=== PATIENT | male | born 1955 | race Caucasian/White ===

== ENCOUNTER → 2018-03-18 15:34 | Outpatient (CLI) | payer OTHER, SELFPAY ==
[2018-03-18 16:09] LABS: BUN Creatinine Ratio 27.5 (6-22); Blood Urea Nitrogen 22 mg/dL (9-20); Calcium 9.4 mg/dL (8.4-10.2); Carbon Dioxide 28 mmol/L (22-32); Chloride 103 mmol/L (98-107); Estimated Glomerular Filt Rate > 60.0 mL/min (>60); Glucose 99 mg/dL (80-110); HEMOLYSIS < 15 (0-50); Potassium 4.2 mmol/L (3.4-5.1); Sodium 140 mmol/L (137-145)
[2018-03-18 16:28] LABS: Vitamin D 25 Hydroxy (D3) 34.1 ng/mL (30.0-100.0)
[2018-03-18 16:40] LABS: Prostate Specific Antigen Scrn 1.38 ng/mL (0.1-4.0)
== END ==
PROVIDERS: PCP Student in an Organized Health Care Education/Training Program; Visit Provider Student in an Organized Health Care Education/Training Program
DX: E55.9 Vitamin D deficiency, unspecified (principal); I10 Essential (primary) hypertension; Z12.5 Encounter for screening for malignant neoplasm of prostate
CPT/HCPCS: 36415; 80048; 82306; G0103

== ENCOUNTER → 2019-02-06 07:13 | Outpatient (CLI) | payer OTHER, SELFPAY ==
--- NOTE | 2019-02-06 08:20 | PM.TREADMILL ---
Cardiac Stress Test Report Referral & Results Date Patient Seen: 02/06/19 Time Patient Seen: 08:00 Requesting provider: Moisés Vargas Indication: Abnormal ST deviations in precordial leads Rest ECG: Normal sinus rhythm Procedure Note: Today following both written and verbal informed consent the patient was exercised according to a standard Tolu protocol patient went for a total of 9 minutes 8 seconds achieving a maximum heart rate of 159 maximum systolic blood pressure of 240. This is approximately 10.1 METs. Exercise was terminated at this point because of fatigue. Patient was also given Cardiolite through a previously started Hep-Lock IV by the nuclear cardiology technologist approximately 1 minute prior to the cessation of exercise. No signs or symptoms of angina. Hypertensive at baseline with appropriate increase in heart rate and blood pressure with exercise. NAN-15% on active scale. [address] depressions in inferior leads that resolved rapidly with rest. Impression: Intermediate probability for ischemia. Will await perfusion imaging. Please note: Actual ECG tracings can be found in the PACS system.
--- NOTE | 2019-02-09 15:57 | DI.NM.S_ITS ---
DATE OF SERVICE: 02/06/2019 PROCEDURE PERFORMED: Exercise treadmill stress and rest myocardial perfusion imaging study with gating to assess ejection fraction and regional wall motion. ORDERING PROVIDER: Moisés Vargas MD INDICATIONS: The patient is a 63-year-old male with a strong family history of ischemic heart disease and an abnormal ECG. EXERCISE TREADMILL TESTING: The patient was able to exercise for a total of 9 minutes 8 seconds on a standard Tolu protocol suggesting very good exercise capacity with an NAN of -15%. He had a normal heart rate response to exercise, achieving a maximum heart rate of 159 bpm (103% of his predicted maximum). He had a hypertensive blood pressure response to exercise with a resting blood pressure of 170/100 increasing to a maximum of 240/90. He had no chest discomfort. His resting ECG is normal. He develop some mild upsloping ST depression but no significant ST-segment deviation. He had a rare PAC in recovery but otherwise no arrhythmias were noted. At 8 minutes 12 seconds of exercise, at heart rate of 155 bpm, 26.9 mCi of technetium-99 Myoview was injected and the patient was imaged 15 minutes later using a gated SPECT acquisition protocol. He returned the 3 days later and was reinjected with an additional 25.6 mCi of technetium-99 Myoview and was imaged 30 minutes later, again using a gated SPECT acquisition protocol. FINDINGS: 1. Raw Data: There is fairly good myocardial tracer uptake. The lung/heart ratio is normal at 0.28 with a normal TID ratio of 0.50. 2. Quantitative Gated SPECT: Post stress ejection fraction is estimated at 86% without any focal wall motion abnormality. Resting ejection fraction is estimated at 75% with a resting end-diastolic volume of 79 mL. 3. Myocardial Perfusion Imaging: Post stress supine images show a normal myocardial perfusion pattern without any perfusion defects, supported by normal perfusion imaging in the prone position. The resting images show an identical perfusion pattern without any areas of improvement. IMPRESSION: 1. Normal myocardial perfusion study. 2. No evidence of myocardial ischemia or previous myocardial infarction. 3. Normal left ventricular systolic function without focal wall motion abnormality. 4. Very good exercise capacity without angina or ECG evidence of ischemia. He had a notable hypertensive blood pressure response to exercise. VonNoe - FRANKIE/lore/ doc#: [id number]/job#: [id number] dd: 02/09/2019 12:44:00 dt: 02/09/2019 15:43:00 DICTATING MD/COPIES TO: Anmol Sánhcez MD; Moisés Vargas MD COPIES MNE: ELLEN BARLOW
== END ==
PROVIDERS: PCP Student in an Organized Health Care Education/Training Program; Visit Provider Student in an Organized Health Care Education/Training Program
DX: R94.31 Abnormal electrocardiogram [ECG] [EKG] (principal); E78.5 Hyperlipidemia, unspecified; I10 Essential (primary) hypertension; Z82.49 Family history of ischemic heart disease and other diseases of the circulatory system
CPT/HCPCS: 78452; 93016; 93017; 93018; A9502

== ENCOUNTER 2019-03-05 12:44 | Day surgery (SDC) | payer OTHER, SELFPAY ==
[2019-03-05 13:06] VITALS: BP 173/85; PULSE 65; RESP 16; TEMP 36.5; O2SAT 98; BMI 22.9
[2019-03-05] MEDS: SODIUM CHLORIDE 0.9% 1,000 ML 200 ML IV (13:14)
--- NOTE | 2019-03-05 13:47 | PM.HP.1 ---
History of Present Illness History of Present Illness Date Patient Seen: 03/05/19 Time Patient Seen: 13:47 Chief complaint: [address] Narrative: Patient presents for colorectal screening. The last colonoscopy was 5 years ago and significant for adenomatous polyps.. No personal or family history of colon cancer. On further history denies any recent gastrointestinal symptoms. No nausea, vomiting, abdominal pain, loss of appetite, unexplained weight loss, change in bowel habits, diarrhea, constipation, melena, hematochezia, or bright red blood per rectum. Patient History Medical History Hyperlipidemia (Chronic ~2000) Hypertension (Chronic ~2005) Surgical History S/P gastrointestinal surgery (Resolved) Family & Social History Family History Brother Age: 66 Hypertension High cholesterol Father Coronary artery disease Hypertension Mother Colorectal cancer Social History: household members spouse Tobacco & Substance use: Smoking Status Former smoker Meds Home Medications and Allergies Home Medications Medication Instructions Recorded Confirmed Type ASPIRIN (#ASPIR 81) 81 mg PO Q DAY #0 07/31/11 03/05/19 History cholecalciferol (vitamin D3) 1,000 unit PO Q OTHER DAY #0 01/16/16 03/05/19 History [Vitamin D3] lisinopril 40 mg tablet 40 mg PO QDAY #30 tab 07/24/18 03/05/19 Rx atorvastatin 40 mg tablet 40 mg PO HS #90 tab 10/28/18 03/05/19 Rx metoprolol succinate 50 mg 50 mg PO BID #180 tab 11/27/18 03/05/19 Rx tablet,extended release 24 hr Allergies Allergy/AdvReac Type Severity Reaction Status Date / Time No Known Drug Allergies Allergy Verified 03/05/19 12:58 Review of Systems Review of Systems Narrative: A complete review of systems is negative except as noted in the HPI Exam Vital Signs (past 8 hours): - 03/05/19 13:06 Temperature 97.7 F Pulse Rate 65 Respiratory Rate 16 Blood Pressure 173/85 H Pulse Oximetry 98 Oxygen Delivery Method Room Air Narrative Exam Narrative: General-no acute distress, well nourished HEENT-moist mucous membranes, no scleral icterus Neck-supple, no lymphadenopathy Chest- non labored respirations, clear to auscultation bilaterally Cardiac-regular rate no peripheral edema Abdomen-soft, nontender, non distended Extremities-warm, well perfused Neurological-alert and oriented, no focal deficits Assessment & Plan Assessment and plan (1) Screening for colon cancer: Current visit: Yes Status: Acute Assessment & Plan narrative: The patient requires colorectal screening and colonoscopy is recommended. Technical details were discussed. Risks, benefits, alternatives explained. Risks including but not limited to myocardial infarction, aspiration, bleeding, pain, missed lesion, incomplete examination, need for further radiographic studies, colonic perforation, and need for major abdominal surgery were discussed. All questions were answered to their satisfaction, and they are in agreement with this plan.
[2019-03-05] MEDS: MIDAZOLAM 5 MG/5 ML VIAL IV (13:52)
[2019-03-05] MEDS: fentaNYL 250 MCG/5 ML INJ IV (13:53)
--- NOTE | 2019-03-05 14:19 | PM.OP.ENDO ---
Operative Date/Time/Diagnoses Date of procedure: 03/05/19 Time of procedure: 14:19 Pre-op diagnosis: Screening colonoscopy Post-op diagnosis: same Procedure & Clinicians Study performed: Colonoscopy Same procedure as scheduled: Yes Indications: 63-year-old male family history colon cancer last colonoscopy 5 years ago with adenomatous polyp presents for screening Surgeon: Davi West Procedure Notes SCOAP/Timeout: Performed Procedure in detail: Patient placed in left lateral decubitus position. Time out was performed. Procedural sedation was administered with Versed and Fentanyl. A rectal exam demonstrated no external hemorrhoids no internal masses. Colonoscopy scope was placed into the rectum and advanced through the colon to the cecum. The ileocecal valve was identified. The scope was then slowly withdrawn examining colon thoroughly in all directions. The colonoscopy was notable for the following 1. Sigmoid diverticulosis 2. Quality of prep excellent 3. No masses or polyps Scope withdrawal time: 7 Sedation minutes: 20 Findings: diverticulosis Specimen(s): none sent Complications: none Impression: Diverticulosis Post-procedure Recommendations: Colonscopy in 5 years (Mother colon cancer 60) Disposition: same day surgery
[2019-03-05 14:23] VITALS: BP 129/66; PULSE 58; RESP 10; TEMP 36.6; O2SAT 95
[2019-03-05 14:30] VITALS: BP 110/51; PULSE 58; RESP 12; O2SAT 99
[2019-03-05 14:40] VITALS: BP 123/54; PULSE 58; RESP 12; O2SAT 94
[2019-03-05 14:50] VITALS: BP 124/63; PULSE 55; RESP 14; TEMP 36.9; O2SAT 95
--- NOTE | 2019-03-05 15:06 | SUR.PHASEII ---
1455 wants to go home, comfortable and stable. Instructions reviewed.
--- NOTE | 2019-03-05 15:19 | SUR.PHASEII ---
1512 Stable on feet, comfortable and pleasant, no questions/concerns
== END 2019-03-05 15:12 | disposition home or self-care (01) ==
PROVIDERS: Family Provider Student in an Organized Health Care Education/Training Program; PCP Student in an Organized Health Care Education/Training Program; Visit Provider Surgery
PROC: 0DJD8ZZ Inspection of Lower Intestinal Tract, Via Natural or Artificial Opening Endoscopic (ICD-10-PCS; CPT 45378; principal; 2019-03-05 13:45)
DX: Z12.11 Encounter for screening for malignant neoplasm of colon (principal); Z86.010 Personal history of colon polyps; Z80.0 Family history of malignant neoplasm of digestive organs; E78.5 Hyperlipidemia, unspecified; I10 Essential (primary) hypertension; K57.30 Diverticulosis of large intestine without perforation or abscess without bleeding
CPT/HCPCS: G0105; 99152; J2250; J3010

== ENCOUNTER → 2019-04-17 07:56 | Outpatient (CLI) | payer OTHER, SELFPAY ==
[2019-04-17 08:53] LABS: BUN Creatinine Ratio 27.5 (6-22); Blood Urea Nitrogen 22 mg/dL (9-20); Calcium 9.5 mg/dL (8.4-10.2); Carbon Dioxide 25 mmol/L (22-32); Chloride 105 mmol/L (98-107); Estimated Glomerular Filt Rate > 60.0 mL/min (>60); Glucose 105 mg/dL (80-110); HEMOLYSIS < 15 (0-50); Potassium 4.3 mmol/L (3.4-5.1); Sodium 139 mmol/L (137-145)
== END ==
PROVIDERS: Family Provider Student in an Organized Health Care Education/Training Program; PCP Student in an Organized Health Care Education/Training Program; Referring Provider Student in an Organized Health Care Education/Training Program; Visit Provider Student in an Organized Health Care Education/Training Program
DX: I10 Essential (primary) hypertension (principal)
CPT/HCPCS: 36415; 80048

== ENCOUNTER → 2020-05-31 10:30 | Outpatient (CLI) | payer OTHER, SELFPAY ==
[2020-05-31 11:28] LABS: BUN Creatinine Ratio 27.6 (6-22); Blood Urea Nitrogen 21 mg/dL (9-20); Calcium 9.7 mg/dL (8.4-10.2); Carbon Dioxide 28 mmol/L (22-32); Chloride 103 mmol/L (98-107); Estimated Glomerular Filt Rate > 60.0 mL/min (>60); Glucose 105 mg/dL (80-110); HEMOLYSIS < 15 (0-50); Potassium 4.1 mmol/L (3.4-5.1); Sodium 137 mmol/L (137-145)
[2020-05-31 12:03] LABS: Prostate Specific Antigen Scrn 1.44 ng/mL (0.1-4.0)
== END ==
PROVIDERS: Family Provider Student in an Organized Health Care Education/Training Program; PCP Student in an Organized Health Care Education/Training Program; Referring Provider Student in an Organized Health Care Education/Training Program; Visit Provider Student in an Organized Health Care Education/Training Program
DX: Z12.5 Encounter for screening for malignant neoplasm of prostate (principal); I10 Essential (primary) hypertension
CPT/HCPCS: 36415; 80048; G0103

== ENCOUNTER → 2021-04-17 07:39 | Outpatient (CLI) | payer OTHER, SELFPAY ==
[2021-04-17 08:33] LABS: Alanine Aminotransferase 62 IU/L (<50); Albumin 4.4 g/dL (3.5-5.0); Albumin Globulin Ratio 1.3 (1.0-2.8); Alkaline Phosphatase 62 U/L (38-126); Aspartate Aminotransferase 43 IU/L (17-59); BUN Creatinine Ratio 29.6 (6-22); Bilirubin Total 0.6 mg/dL (0.2-1.3); Blood Urea Nitrogen 29 mg/dL (9-20); Calcium 9.8 mg/dL (8.4-10.2); Carbon Dioxide 35 mmol/L (22-32); Chloride 101 mmol/L (98-107); Cholesterol 154 mg/dL (140-199); Estimated Glomerular Filt Rate > 60.0 mL/min (>60); Globulin 3.4 g/dL (1.7-4.1); Glucose 115 mg/dL (80-110); HDL Cholesterol 41 mg/dL (40-60); HEMOLYSIS < 15 (0-50); LDL Cholesterol Calculated 88 mg/dL (<100); Potassium 4.3 mmol/L (3.4-5.1); Sodium 139 mmol/L (137-145); Total Protein 7.8 g/dL (6.3-8.2); Triglycerides 123 mg/dL (35-150)
[2021-04-17 09:04] LABS: TSH w/ Reflex to FT4 2.72 uIU/mL (0.47-4.68)
[2021-04-17 09:19] LABS: Microalbumin Urine Random 6.6 mg/dL (0-1.6)
[2021-04-17 09:20] LABS: Creatinine Urine Random 477.7 mg/dL; Microalbumi Creatinin Ratio Ur 13.8 ug/mg CR (<30)
== END ==
PROVIDERS: Family Provider Student in an Organized Health Care Education/Training Program; PCP Student in an Organized Health Care Education/Training Program; Referring Provider Internal Medicine; Visit Provider Internal Medicine
DX: I10 Essential (primary) hypertension (principal); E78.5 Hyperlipidemia, unspecified
CPT/HCPCS: 36415; 80053; 80061; 82043; 82570; 84443

== ENCOUNTER → 2021-09-27 07:42 | Outpatient (CLI) | payer OTHER, SELFPAY ==
[2021-09-27 09:27] LABS: Prostate Specific Antigen Scrn 1.79 ng/mL (0.1-4.0)
== END ==
PROVIDERS: Family Provider Student in an Organized Health Care Education/Training Program; PCP Student in an Organized Health Care Education/Training Program; Referring Provider Urology; Visit Provider Urology
DX: Z12.5 Encounter for screening for malignant neoplasm of prostate (principal)
CPT/HCPCS: 36415; G0103

== ENCOUNTER → 2022-02-02 15:29 | Outpatient (CLI) | payer OTHER, SELFPAY ==
[2022-02-02 16:23] LABS: Add Manual Diff / Slide Review NO; Basophils Absolute Auto 100 /uL (0-100); Basophils Percent Auto 0.6 % (0-2); Eosinophils Absolute Auto 200 /uL (0-450); Eosinophils Percent Auto 2.4 % (2-4); Hematocrit 37.3 % (41-53); Hemoglobin 12.5 g/dL (13.5-17.5); Lymphocytes Absolute Auto 2600 /uL (1100-4500); Lymphocytes Percent Auto 27.2 % (25-40); Mean Corpuscular HGB Conc 33.6 % (30-36); Mean Corpuscular Hemoglobin 31.4 PG (26-34); Mean Corpuscular Volume 93.6 fL (80-100); Monocytes Absolute Auto 900 /uL (0-900); Monocytes Percent Auto 9.6 % (3-14); Neutrophils Absolute Auto 5800 /uL (1500-7000); Neutrophils Percent Auto 60.2 % (50-75); Platelet Count 223 X10^3/uL (150-400); Red Blood Cell Count 3.98 X10^6/uL (4.5-5.9); White Blood Cell Count 9.6 X10^3/uL (4.5-11.0)
[2022-02-02 16:47] LABS: Alanine Aminotransferase 47 IU/L (<50); Albumin 4.3 g/dL (3.5-5.0); Albumin Globulin Ratio 1.4 (1.0-2.8); Alkaline Phosphatase 70 U/L (38-126); Aspartate Aminotransferase 30 IU/L (17-59); Bilirubin Total 0.5 mg/dL (0.2-1.3); Blood Urea Nitrogen 31 mg/dL (9-20); Calcium 9.1 mg/dL (8.4-10.2); Carbon Dioxide 30 mmol/L (22-32); Chloride 99 mmol/L (98-107); Estimated Glomerular Filt Rate > 60 mL/min (>60); Glucose 103 mg/dL (80-110); HEMOLYSIS < 15 (0-50); Potassium 4.3 mmol/L (3.4-5.1); Sodium 139 mmol/L (137-145); Total Protein 7.3 g/dL (6.3-8.2)
[2022-02-02 17:00] LABS: Free T4, Direct Thyroxine 1.09 ng/dL (0.78-2.19)
[2022-02-02 17:14] LABS: Thyroid Stimulating Hormone 2.23 uIU/mL (0.47-4.68)
== END ==
PROVIDERS: Family Provider Student in an Organized Health Care Education/Training Program; PCP Student in an Organized Health Care Education/Training Program; Referring Provider Internal Medicine; Visit Provider Internal Medicine
DX: E78.5 Hyperlipidemia, unspecified (principal); D64.9 Anemia, unspecified
CPT/HCPCS: 36415; 80053; 84439; 84443; 85025

== ENCOUNTER 2022-07-13 09:30 | Outpatient (RCR) | payer OTHER, SELFPAY ==
--- NOTE | 2022-07-02 16:52 | PT.OIE ---
Current Diagnoses Strain of muscle, fascia and tendon of lower back, initial encounter (07/02/22) Past Medical History (Last Updated 04/18/22 @ 12:27 by Teddy Esquivel MD) Contact dermatitis Hyperlipidemia (~2000) Hypertension (~2005) Lower urinary tract symptoms Past Surgical History (Last Reviewed 09/05/21 @ 13:56 by Teddy Esquivel MD) S/P gastrointestinal surgery Visit Care Team Role Provider Type Moisés Vargas MD Attending Provider Physician Family Provider Primary Care Provider Referring Provider Specialty: Internal Medicine Address: [address] [place] [address], [address], [facility] Email: [email or web address] Physical Therapy Initial Evaluation PT-OP-A Visit Information Start: 06/28/22 18:09 Freq: Status: Active Protocol: Document 07/02/22 13:17 LRN (Rec: 07/02/22 14:59 LRN [id number]) Out-Patient Physical Therapy Visit Information Visit Information Visit Type Initial Evaluation Visit Start Time 13:17 Visit Stop Time 14:19 Total Visit Minutes 62 Visit Number 03/10 Evaluation Information Evaluation Date 07/02/22 Precautions Precautions Per intake form: Hernia - 2011, HBP controlled by meds. PT-OP-B Current Condition Start: 06/28/22 18:09 Freq: Status: Active Protocol: Document 07/02/22 13:17 LRN (Rec: 07/02/22 14:59 LRN [id number]) Current Condition History of Current Condition Onset Date June 07, 2022 Current Complaints LBP constant, diminishes as the day goes on w/pain meds, worse at night. History of Current Condition 3.5 weeks ago pt reports sudden onset of LBP. 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 Pain began in the L low back and later it radiated into the thigh. Numbness and tingling in L LE. LLE and bilateral feet feels cold if sitting a long time. Prior Treatments and Tests Dr. Palencias, chiropractor and was told he was suffering from a facet joint strain. Treatments started 06/12/22, has had 3 visits/week and will see him today. Developmental History Developmental History Part-time, 4 days a week, 24 hr/week. [employer] and has maybe been to eager to help load sacks of concrete. 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 Has had gradual improvement. Last week and today is better and in mornings better. Pain in AM is 4/10, using pain relievers (prednisone - for 1 week and will finish tomorrow), Naproxin and extra strength tylenol and heating pad/ice/ rest. Previous onset of hernia disc ~12 yrs ago. Treatment Goals Patient/Caregiver Goals Pt goals: Carry on normally without back pain. 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 Prior Functional Status Baseline Function- Work/School Walked unlimited at work 4 days/week, 24 hr days. Able to stand > 10-15'. Current Functional Impairments (Reported) Functional Limitations- Mobility/Gait 100 yards or less. Stands only 10-15' before LBP. Functional Limitations- Work/School Off work for now. Personal Factors Other Personal Factors That May Effect Retired, but working part-time Therapy/Recovery at [employer] locally and at [employer], both requiring lifting requrements. PT-OP-C Subjective Start: 06/28/22 18:09 Freq: Status: Active Protocol: Document 07/02/22 13:17 LRN (Rec: 07/02/22 14:59 LRN [id number]) Patient Questionnaires Oswestry Low Back Index Oswestry Score 16 Oswestry Impairment 1 to 19% Impaired (Score 1-19) OP-PT Pain Assessment Pain Assessment Grid Paper Pain Assessment Grid Completed Yes Location Low back Pain Location Details L Low back an L lateral thigh and posterior knee; groin, R inner thigh, Intensity 3 Scale Used Numeric (0 - 10) Description Tightness Description- Other Strain feeling. Frequency Constant Pain Aggravating Factors ADL's,Activity,Standing, Walking,Prolonged Bedrest Pain Alleviating Factors Cold,Heat,Medication,Standing PT-OP-H Neuro Start: 06/28/22 18:09 Freq: Status: Active Protocol: Document 07/02/22 13:17 LRN (Rec: 07/02/22 14:59 LRN [id number]) Sensation Evaluation Gross Sensation Gross Sensation Left LE Impaired Sensation Description Numbness,Coldness Dermatome Impairments L3 Deep Tendon Reflex & Clonus Assessment Deep Tendon Reflex Right Patellar Deep Tendon Reflex 0 Absent Left Patellar Deep Tendon Reflex 2+ Normal PT-OP-J Posture/Palpation/Skin Start: 06/28/22 18:09 Freq: Status: Active Protocol: Document 07/02/22 13:17 LRN (Rec: 07/02/22 14:59 LR [id number]) Posture Evaluation Position Standing Head/C-Spine Posture Forward Head Pelvis Posture Anteriorly Tilted Hip Posture (L) Externally Rotated,(R) Externally Rotated Comments Posture Comments R lower leg is smaller than L. Pt is R handed. Palpation Assessment Location Low Back Palpation Location Left QL Palpation Findings Tenderness Palpation Details No tenderness at L SIJ, spinous processes of L/S with PA glide, hip muscles. Tightness of L hip muscles. PT-OP-K Range of Motion Start: 06/28/22 18:09 Freq: Status: Active Protocol: Document 07/02/22 13:17 LRN (Rec: 07/02/22 14:59 [facility] [id number]) Lumbar Spine Range of Motion Lumbar Spine Active Degrees Testing Position Standing Flexion 80 Extension 25 Rotation Left 15 Rotation Right 10 Lateral Flexion Left 12 Lateral Flexion Right 25 ROM Limitations Pain Comments Trunk Flexion is 80 deg?s with 62 deg?s hip flexion, Trunk extension is 25 deg?s with 18 deg?s hip extension. Hip Goniometric Range of Motion Hip Right Passive Hip ROM WFL Yes Testing Position Supine Internal Rotation 30 External Rotation 55 Left Passive Hip ROM WFL No Testing Position Supine Internal Rotation 35 External Rotation 50 PT-OP-L Special Tests Start: 06/28/22 18:09 Freq: Status: Active Protocol: Document 07/02/22 13:17 LRN (Rec: 07/02/22 14:59 [facility] [id number]) Special Tests Lumbar Spine Special Tests Manual Traction Test Results - Comments No change in L LBP. Vertical Spine Loading Test Results - Comments No pain, trunk goes into extension Straight Leg Raise Test Results + Left (50 deg's), - Right (80 deg's) Standing Flexion Test Results - Comments No pain Prone Press Up Test Results - Comments No pain Slump Test Results - Comments No pain Hip Special Tests SAULO Test Results + Left Comments Onset of L lateral hip/lateral groin pain. PT-OP-M Strength Start: 06/28/22 18:09 Freq: Status: Active Protocol: Document 07/02/22 13:17 LRN (Rec: 07/02/22 14:59 LRN [id number]) Trunk Strength Trunk Manual Muscle Testing Flexion 5 Normal Extension 5 Normal Rotation Left 5 Normal Rotation Right 5 Normal Lateral Flexion Left 5 Normal Lateral Flexion Right 5 Normal Comments Pain felt with testing of trunk L SB and extension. Hip Strength Hip Manual Muscle Testing Right Flexion (L2) 5 Normal Extension (S1) 5 Normal Abduction 5 Normal Adduction 5 Normal External Rotation 5 Normal Internal Rotation 5 Normal Left Flexion (L2) 4- Good- Extension (S1) 5 Normal Abduction 4- Good- Adduction 2- Poor- External Rotation 5 Normal Internal Rotation 5 Normal Comments Flex - anterior lateral hip pain. PT-OP-Q Treatments Start: 06/28/22 18:09 Freq: Status: Active Protocol: Document 07/02/22 13:17 LRN (Rec: 07/02/22 14:59 LRN [id number]) Self-Care/Home Management Treatment Education Other Education Discussed at length results of evaluation, goals, and plan of care (POC). Pt agreeable to goals and POC. Pt had questions regarding stopping medications. Explained to pt to keep meds as prescribed and why. Discussed that the pt should speak to referring MD or pharmacist regarding medications. Activities Self-Care/Home Management Activities I/S pt to continue his regime of meds/heat/ice. PT-OP-T Assessment and Plan Start: 06/28/22 18:09 Freq: Status: Active Protocol: Document 07/02/22 13:17 LRN (Rec: 07/02/22 14:59 [facility] [id number]) Physical Therapy Assessment Rehab Potential Rehabilitation Potential Good Evaluation Complexity Number of Personal Factors/Comorbidities 1-2 Number of Body Systems Impaired 4 or More Clinical Presentation at Evaluation Evolving Impairments Impairments Activity Tolerance,Pain, Posture,ROM,Sensation,Soft Tissue Mobility,Strength, Transfers Goals Three Impairment Decreased function Impairment KACI score 32/100 (1-19% impaired, score 1-19). Short Term Goal (STG) Pt will be able to standing > 10-15'. 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 LTG Duration 08/13/22 Two Impairment Decreased trunk mobility Impairment Trunk Flex is 80 deg's, Trunk ext is 25 deg's, SB is 12 deg' s left, 25 deg's right; Rot is 15 deg's L, 10 deg's R. Boilermaker Fitter Goal (LTG) Pt will be able to get in/out of car without back pain. LTG Duration 08/13/22 One Impairment Lacks appropriate self care HEP. Short Term Goal (STG) Pt will be educated in proper body mechanics for transfer and ADLs, and proper sitting and standing posture. STG Duration 07/13/22 Retirement Goal (LTG) Pt will be independent and consistent with a self care HEP to manage his L lower extremity pain and sensation complaints of the LLE ( coldness) and feet (cold). LTG Duration 08/31/22 Assessment Summary Assessment Pt presents with variable response to testing indicating soft neuro or mechanical joint dysfunction. The pt complains of left low back and lateral thigh pain with sensation changes in the L lateral thigh and feet bilaterally (fuzzy feeling in L thigh, and cold sensation in L thigh/tomy feet). He is taking multiple medications including prednisone and reported Naproxin and Tylenol which may be resulting in mixed response to provocation testing. The pt will benefit from skilled physical therapy for focus on decreasing soft tissue muscle guarding and pain, improving lumbar/hip mobility and for hip/core/ pelvic stabilization, manual therapy, ROM, stabilization and strengthening ex's, neural glides, and education for self care of ex's, posturing/ positioning, body mechanics training and home modalities for pain. Physical Therapy Plan Frequency and Duration Frequency of Treatment 2x/Week Plan of Care Start Date 07/02/22 Plan of Care End Date 08/13/22 Therapeutic Interventions Therapeutic Interventions Home Exercise Program,Joint Mobilizations,Manual Therapy, Neuromuscular Re-education, Patient/Caregiver Education, Self-Care/Home Management,Soft Tissue Mobilization,Taping, Therapeutic Activities, Therapeutic Exercises Modalities Cold Pack/Ice Massage,Electric Stimulation,Hot Packs, Traction- Mechanical, Ultrasound Next Visit Focus/Plan Next Note Type Treatment Note Next Visit Plan POC: Lumbar rehab for possible neural involvement with ressessment in 2 weeks after pt has completed prednisone meds. As symptoms change with change in medications (prednisone stopping this week), treatment focus may switch more towards normalization of soft tissue mobility and strength. Start: Manual lumbar traction, Sciatic n glides, body mechanics training, ending MH/ IFES. As pt tols, start core /pelvic stabilization and posture training.
--- NOTE | 2022-07-02 16:52 | PT.OPPOC ---
Physical, Occupational & Speech Therapy At [facility] Current Diagnoses Strain of muscle, fascia and tendon of lower back, initial encounter (07/02/22) Visit Care Team Role Provider Type Moisés Vargas MD Attending Provider Physician Family Provider Primary Care Provider Referring Provider Specialty: Internal Medicine Address: [address] [place] [address], [address], [address] Email: [email or web address] Plan Of Care PT-OP-T Assessment and Plan Start: 06/28/22 18:09 Freq: Status: Active Protocol: Document 07/02/22 13:17 LRN (Rec: 07/02/22 14:59 LRN [id number]) Physical Therapy Assessment Rehab Potential Rehabilitation Potential Good Evaluation Complexity Number of Personal Factors/Comorbidities 1-2 Number of Body Systems Impaired 4 or More Clinical Presentation at Evaluation Evolving Impairments Impairments Activity Tolerance,Pain, Posture,ROM,Sensation,Soft Tissue Mobility,Strength, Transfers Goals Three Impairment Decreased function Impairment KACI score 32/100 (1-19% impaired, score 1-19). Short Term Goal (STG) Pt will be able to standing > 10-15'. 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 LTG Duration 08/13/22 Two Impairment Decreased trunk mobility Impairment Trunk Flex is 80 deg's, Trunk ext is 25 deg's, SB is 12 deg' s left, 25 deg's right; Rot is 15 deg's L, 10 deg's R. Ditcher Goal (LTG) Pt will be able to get in/out of car without back pain. LTG Duration 08/13/22 One Impairment Lacks appropriate self care HEP. Short Term Goal (STG) Pt will be educated in proper body mechanics for transfer and ADLs, and proper sitting and standing posture. STG Duration 07/13/22 Ditcher Goal (LTG) Pt will be independent and consistent with a self care HEP to manage his L lower extremity pain and sensation complaints of the LLE ( coldness) and feet (cold). LTG Duration 08/31/22 Assessment Summary Assessment Pt presents with variable response to testing indicating soft neuro or mechanical joint dysfunction. The pt complains of left low back and lateral thigh pain with sensation changes in the L lateral thigh and feet bilaterally (fuzzy feeling in L thigh, and cold sensation in L thigh/tomy feet). He is taking multiple medications including prednisone and reported Naproxin and Tylenol which may be resulting in mixed response to provocation testing. The pt will benefit from skilled physical therapy for focus on decreasing soft tissue muscle guarding and pain, improving lumbar/hip mobility and for hip/core/ pelvic stabilization, manual therapy, ROM, stabilization and strengthening ex's, neural glides, and education for self care of ex's, posturing/ positioning, body mechanics training and home modalities for pain. Physical Therapy Plan Frequency and Duration Frequency of Treatment 2x/Week Plan of Care Start Date 07/02/22 Plan of Care End Date 08/13/22 Therapeutic Interventions Therapeutic Interventions Home Exercise Program,Joint Mobilizations,Manual Therapy, Neuromuscular Re-education, Patient/Caregiver Education, Self-Care/Home Management,Soft Tissue Mobilization,Taping, Therapeutic Activities, Therapeutic Exercises Modalities Cold Pack/Ice Massage,Electric Stimulation,Hot Packs, Traction- Mechanical, Ultrasound Next Visit Focus/Plan Next Note Type Treatment Note Next Visit Plan POC: Lumbar rehab for possible neural involvement with ressessment in 2 weeks after pt has completed prednisone meds. As symptoms change with change in medications (prednisone stopping this week), treatment focus may switch more towards normalization of soft tissue mobility and strength. Start: Manual lumbar traction, Sciatic n glides, body mechanics training, ending MH/ IFES. As pt tols, start core /pelvic stabilization and posture training. Plan of Care Dates Plan of Care Start Date 07/02/22 Plan of Care End Date 08/13/22 Electronically Signed by: Joaquina Mauricio, PT 07/02/22 8719 If you are in agreement with this Plan of Care, please return a signed and dated copy. I have reviewed this Plan of Care and certify that the skilled therapy services above are required to meet the patient?s needs. Physician Signature Date Printed Name and Credentials Clinical Instructor Signature Printed Name and Credentials
--- NOTE | 2022-07-02 17:10 | PT.OPPOC ---
Physical, Occupational & Speech Therapy At [facility] Current Diagnoses Radiculopathy, lumbar region (07/02/22) Strain of muscle, fascia and tendon of lower back, initial encounter (07/02/22) Visit Care Team Role Provider Type Moisés Vargas MD Attending Provider Physician Family Provider Primary Care Provider Referring Provider Specialty: Internal Medicine Address: [address] [place] [address], [address], [facility] Email: [email or web address] Plan Of Care PT-OP-T Assessment and Plan Start: 06/28/22 18:09 Freq: Status: Active Protocol: Document 07/02/22 13:17 LRN (Rec: 07/02/22 14:59 LRN [id number]) Physical Therapy Assessment Rehab Potential Rehabilitation Potential Good Evaluation Complexity Number of Personal Factors/Comorbidities 1-2 Number of Body Systems Impaired 4 or More Clinical Presentation at Evaluation Evolving Impairments Impairments Activity Tolerance,Pain, Posture,ROM,Sensation,Soft Tissue Mobility,Strength, Transfers Goals Three Impairment Decreased function Impairment KACI score 32/100 (1-19% impaired, score 1-19). Short Term Goal (STG) Pt will be able to standing > 10-15'. 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 LTG Duration 08/13/22 Two Impairment Decreased trunk mobility Impairment Trunk Flex is 80 deg's, Trunk ext is 25 deg's, SB is 12 deg' s left, 25 deg's right; Rot is 15 deg's L, 10 deg's R. [employer] Goal (LTG) Pt will be able to get in/out of car without back pain. LTG Duration 08/13/22 One Impairment Lacks appropriate self care HEP. Short Term Goal (STG) Pt will be educated in proper body mechanics for transfer and ADLs, and proper sitting and standing posture. STG Duration 07/13/22 [employer] Goal (LTG) Pt will be independent and consistent with a self care HEP to manage his L lower extremity pain and sensation complaints of the LLE ( coldness) and feet (cold). LTG Duration 08/31/22 Assessment Summary Assessment Pt presents with variable response to testing indicating soft neuro or mechanical joint dysfunction. The pt complains of left low back and lateral thigh pain with sensation changes in the L lateral thigh and feet bilaterally (fuzzy feeling in L thigh, and cold sensation in L thigh/tomy feet). He is taking multiple medications including prednisone and reported Naproxin and Tylenol which may be resulting in mixed response to provocation testing. The pt will benefit from skilled physical therapy for focus on decreasing soft tissue muscle guarding and pain, improving lumbar/hip mobility and for hip/core/ pelvic stabilization, manual therapy, ROM, stabilization and strengthening ex's, neural glides, and education for self care of ex's, posturing/ positioning, body mechanics training and home modalities for pain. Physical Therapy Plan Frequency and Duration Frequency of Treatment 2x/Week Plan of Care Start Date 07/02/22 Plan of Care End Date 08/13/22 Therapeutic Interventions Therapeutic Interventions Home Exercise Program,Joint Mobilizations,Manual Therapy, Neuromuscular Re-education, Patient/Caregiver Education, Self-Care/Home Management,Soft Tissue Mobilization,Taping, Therapeutic Activities, Therapeutic Exercises Modalities Cold Pack/Ice Massage,Electric Stimulation,Hot Packs, Traction- Mechanical, Ultrasound Next Visit Focus/Plan Next Note Type Treatment Note Next Visit Plan POC: Lumbar rehab for possible neural involvement with ressessment in 2 weeks after pt has completed prednisone meds. As symptoms change with change in medications (prednisone stopping this week), treatment focus may switch more towards normalization of soft tissue mobility and strength. Start: Manual lumbar traction, Sciatic n glides, body mechanics training, ending MH/ IFES. As pt tols, start core /pelvic stabilization and posture training. Plan of Care Dates Plan of Care Start Date 07/02/22 Plan of Care End Date 08/13/22 Electronically Signed by: Joaquina Mauricio, PT 07/02/22 1163 If you are in agreement with this Plan of Care, please return a signed and dated copy. I have reviewed this Plan of Care and certify that the skilled therapy services above are required to meet the patient?s needs. Physician Signature Date Printed Name and Credentials Clinical Instructor Signature Printed Name and Credentials
--- NOTE | 2022-07-09 18:06 | PT.OTN ---
Current Diagnoses Radiculopathy, lumbar region (07/09/22) Strain of muscle, fascia and tendon of lower back, initial encounter (07/09/22) Physical Therapy Treatment Note PT-OP-A Visit Information Start: 06/28/22 18:09 Freq: Status: Active Protocol: Document 07/09/22 09:39 LRN (Rec: 07/09/22 10:22 LRN [id number]) Out-Patient Physical Therapy Visit Information Visit Information Visit Type Treatment Note Visit Start Time 09:39 Visit Stop Time 10:17 Total Visit Minutes 38 Visit Number 2/7 Evaluation Information Evaluation Date 07/02/22 Precautions Precautions Per intake form: Hernia - 2011, HBP controlled by meds. PT-OP-B Current Condition Start: 06/28/22 18:09 Freq: Status: Active Protocol: Document 07/02/22 13:17 LRN (Rec: 07/02/22 14:59 LRN [id number]) Current Condition History of Current Condition Onset Date June 07, 2022 Current Complaints LBP constant, diminishes as the day goes on w/pain meds, worse at night. History of Current Condition 3.5 weeks ago pt reports sudden onset of LBP. 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 Pain began in the L low back and later it radiated into the thigh. Numbness and tingling in L LE. LLE and bilateral feet feels cold if sitting a long time. Prior Treatments and Tests Dr. Carter's, chiropractor and was told he was suffering from a facet joint strain. Treatments started 06/12/22, has had 3 visits/week and will see him today. Developmental History Developmental History Part-time, 4 days a week, 24 hr/week. 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 Has had gradual improvement. Last week and today is better and in mornings better. Pain in AM is 4/10, using pain relievers (prednisone - for 1 week and will finish tomorrow), Naproxin and extra strength tylenol and heating pad/ice/ rest. Previous onset of hernia disc ~12 yrs ago. Treatment Goals Patient/Caregiver Goals Pt goals: Carry on normally without back pain. 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 Prior Functional Status Baseline Function- Work/School Walked unlimited at work 4 days/week, 24 hr days. Able to stand > 10-15'. Current Functional Impairments (Reported) Functional Limitations- Mobility/Gait 100 yards or less. Stands only 10-15' before LBP. Functional Limitations- Work/School Off work for now. Personal Factors Other Personal Factors That May Effect Retired, but working part-time Therapy/Recovery at [employer] and at [employer], both requiring lifting requrements. PT-OP-C Subjective Start: 06/28/22 18:09 Freq: Status: Active Protocol: Document 07/09/22 09:39 LRN (Rec: 07/09/22 10:22 LRN [id number]) OP-PT Subjective Patient Comments Patient Comments States he is getting some relief from the pain. States it is not as intense. Hasn't use pain relievers today. Pain rated 2.5-3/10. Pain 2/ 10 after treatment. PT-OP-H Neuro Start: 06/28/22 18:09 Freq: Status: Active Protocol: Document 07/02/22 13:17 LRN (Rec: 07/02/22 14:59 LRN [id number]) Sensation Evaluation Gross Sensation Gross Sensation Left LE Impaired Sensation Description Numbness,Coldness Dermatome Impairments L3 Deep Tendon Reflex & Clonus Assessment Deep Tendon Reflex Right Patellar Deep Tendon Reflex 0 Absent Left Patellar Deep Tendon Reflex 2+ Normal PT-OP-J Posture/Palpation/Skin Start: 06/28/22 18:09 Freq: Status: Active Protocol: Document 07/02/22 13:17 LRN (Rec: 07/02/22 14:59 LRN [id number]) Posture Evaluation Position Standing Head/C-Spine Posture Forward Head Pelvis Posture Anteriorly Tilted Hip Posture (L) Externally Rotated,(R) Externally Rotated Comments Posture Comments R lower leg is smaller than L. Pt is R handed. Palpation Assessment Location Low Back Palpation Location Left QL Palpation Findings Tenderness Palpation Details No tenderness at L SIJ, spinous processes of L/S with PA glide, hip muscles. Tightness of L hip muscles. PT-OP-K Range of Motion Start: 06/28/22 18:09 Freq: Status: Active Protocol: Document 07/02/22 13:17 LRN (Rec: 07/02/22 14:59 LRN [id number]) Lumbar Spine Range of Motion Lumbar Spine Active Degrees Testing Position Standing Flexion 80 Extension 25 Rotation Left 15 Rotation Right 10 Lateral Flexion Left 12 Lateral Flexion Right 25 ROM Limitations Pain Comments Trunk Flexion is 80 deg?s with 62 deg?s hip flexion, Trunk extension is 25 deg?s with 18 deg?s hip extension. Hip Goniometric Range of Motion Hip Right Passive Hip ROM WFL Yes Testing Position Supine Internal Rotation 30 External Rotation 55 Left Passive Hip ROM WFL No Testing Position Supine Internal Rotation 35 External Rotation 50 PT-OP-L Special Tests Start: 06/28/22 18:09 Freq: Status: Active Protocol: Document 07/02/22 13:17 LRN (Rec: 07/02/22 14:59 LRN [id number]) Special Tests Lumbar Spine Special Tests Manual Traction Test Results - Comments No change in L LBP. Vertical Spine Loading Test Results - Comments No pain, trunk goes into extension Straight Leg Raise Test Results + Left (50 deg's), - Right (80 deg's) Standing Flexion Test Results - Comments No pain Prone Press Up Test Results - Comments No pain Slump Test Results - Comments No pain Hip Special Tests SAULO Test Results + Left Comments Onset of L lateral hip/lateral groin pain. PT-OP-M Strength Start: 06/28/22 18:09 Freq: Status: Active Protocol: Document 07/02/22 13:17 LRN (Rec: 07/02/22 14:59 LRN [id number]) Trunk Strength Trunk Manual Muscle Testing Flexion 5 Normal Extension 5 Normal Rotation Left 5 Normal Rotation Right 5 Normal Lateral Flexion Left 5 Normal Lateral Flexion Right 5 Normal Comments Pain felt with testing of trunk L SB and extension. Hip Strength Hip Manual Muscle Testing Right Flexion (L2) 5 Normal Extension (S1) 5 Normal Abduction 5 Normal Adduction 5 Normal External Rotation 5 Normal Internal Rotation 5 Normal Left Flexion (L2) 4- Good- Extension (S1) 5 Normal Abduction 4- Good- Adduction 2- Poor- External Rotation 5 Normal Internal Rotation 5 Normal Comments Flex - anterior lateral hip pain. PT-OP-Q Treatments Start: 06/28/22 18:09 Freq: Status: Active Protocol: Document 07/09/22 09:39 LRN (Rec: 07/09/22 10:22 LRN [id number]) Therapeutic Exercises Supine Exercises Supine>Sit Supine Exercise Name Transfer training on/off mechanical traction. Reps/Minutes 7' Comments Cuing for Core stab and proper movement Mechanical traction Supine Exercise Name Mechanical traction attempted Reps/Minutes 14' Comments Tried supine 3 diff positions of belt placement and prone. Not good relief Prone Exercises QUETA Prone Exercise Name QUETA Reps/Minutes 2' Comments became painful Manual Therapy Treatment Manual Traction Lumbar Details Traction with belt intermittent and long hold. Body Position Hooklying Reps/Duration 15' total Comments 8' to start, 7' at end on MH Self-Care/Home Management Treatment Education Patient Education Body Mechanics,Posture Other Education Discussed and educated pt in stresses on the back in different postures, proper body mechanics and learning safe body mechanics. Activities Self-Care/Home Management Activities Issued & reviewed handout for proper body mechanics for ADLs , safe body mechanics for all positions and Stern to safe movement of stress on back with multiple positions. PT-OP-T Assessment and Plan Start: 06/28/22 18:09 Freq: Status: Active Protocol: Document 07/09/22 09:39 LRN (Rec: 07/09/22 10:22 LRN [id number]) Physical Therapy Assessment Goals Three Impairment Decreased function Impairment KACI score 32/100 (1-19% impaired, score 1-19). Short Term Goal (STG) Pt will be able to standing > 10-15'. 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 LTG Duration 08/13/22 Two Impairment Decreased trunk mobility Impairment Trunk Flex is 80 deg's, Trunk ext is 25 deg's, SB is 12 deg' s left, 25 deg's right; Rot is 15 deg's L, 10 deg's R. Snf Goal (LTG) Pt will be able to get in/out of car without back pain. LTG Duration 08/13/22 One Impairment Lacks appropriate self care HEP. Short Term Goal (STG) Pt will be educated in proper body mechanics for transfer and ADLs, and proper sitting and standing posture. 07/09/22: Pt educated in proper body mechanics for ADLS. STG Duration 07/13/22 partially met goal 07/09/22 Snf Goal (LTG) Pt will be independent and consistent with a self care HEP to manage his L lower extremity pain and sensation complaints of the LLE ( coldness) and feet (cold). LTG Duration 08/31/22 Progress Towards Goals Progress Comments Partially met STG #1. Assessment Summary Assessment Pt symptoms of L/S neural involvement. + response to manual Lumbar traction; therefore static traction tried, but not able to get + response with mechanical traction. Pain decreased after treatment of mainly manual lumbar traction. Physical Therapy Plan Frequency and Duration Frequency of Treatment 2x/Week Plan of Care Start Date 07/02/22 Plan of Care End Date 08/13/22 Next Visit Focus/Plan Next Note Type Treatment Note Next Visit Plan POC: Lumbar rehab with neural involvement with ressessment in 2 weeks after pt has completed prednisone meds. Next: pt education in proper body mechanics for transfer and proper sitting and standing posture Treatment focus on pt education in proper body mechanics for transfer and proper sitting and standing posture, and reducing neural L/S LE pain and normalization of soft tissue mobility and strength. Start: Manual lumbar traction, Sciatic n glides, ending MH/IFES. As pt tols, start core/pelvic stabilization and posture training.
--- NOTE | 2022-07-13 10:29 | PT.OTN ---
Current Diagnoses Radiculopathy, lumbar region (07/13/22) Strain of muscle, fascia and tendon of lower back, initial encounter (07/13/22) Physical Therapy Treatment Note PT-OP-A Visit Information Start: 06/28/22 18:09 Freq: Status: Active Protocol: Document 07/13/22 09:34 LRN (Rec: 07/13/22 10:28 LRN [id number]) Out-Patient Physical Therapy Visit Information Visit Information Visit Type Treatment Note Visit Start Time 09:34 Visit Stop Time 10:15 Total Visit Minutes 41 Visit Number 3/7 Evaluation Information Evaluation Date 07/02/22 Precautions Precautions Per intake form: Hernia - 2011, HBP controlled by meds. PT-OP-B Current Condition Start: 06/28/22 18:09 Freq: Status: Active Protocol: Document 07/02/22 13:17 LRN (Rec: 07/02/22 14:59 LRN [id number]) Current Condition History of Current Condition Onset Date June 07, 2022 Current Complaints LBP constant, diminishes as the day goes on w/pain meds, worse at night. History of Current Condition 3.5 weeks ago pt reports sudden onset of LBP. 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 Pain began in the L low back and later it radiated into the thigh. Numbness and tingling in L LE. LLE and bilateral feet feels cold if sitting a long time. Prior Treatments and Tests Dr. Carter's, chiropractor and was told he was suffering from a facet joint strain. Treatments started 06/12/22, has had 3 visits/week and will see him today. Developmental History Developmental History Part-time, 4 days a week, 24 hr/week. 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 Has had gradual improvement. Last week and today is better and in mornings better. Pain in AM is 4/10, using pain relievers (prednisone - for 1 week and will finish tomorrow), Naproxin and extra strength tylenol and heating pad/ice/ rest. Previous onset of hernia disc ~12 yrs ago. Treatment Goals Patient/Caregiver Goals Pt goals: Carry on normally without back pain. 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 Prior Functional Status Baseline Function- Work/School Walked unlimited at work 4 days/week, 24 hr days. Able to stand > 10-15'. Current Functional Impairments (Reported) Functional Limitations- Mobility/Gait 100 yards or less. Stands only 10-15' before LBP. Functional Limitations- Work/School Off work for now. Personal Factors Other Personal Factors That May Effect Retired, but working part-time [facility]Recovery [facility] [employer] and at [facility], both requiring lifting requrements. PT-OP-C Subjective Start: 06/28/22 18:09 Freq: Status: Active Protocol: Document 07/13/22 09:34 LRN (Rec: 07/13/22 10:28 LRN [id number]) OP-PT Subjective Patient Comments Patient Comments Ovid good in back after last treatment for a couple days considered cancelling appt today, then pain returned. Pain to start is 3+/10, after traction is 2/10. PT-OP-H Neuro Start: 06/28/22 18:09 Freq: Status: Active Protocol: Document 07/02/22 13:17 LRN (Rec: 07/02/22 14:59 LRN [id number]) Sensation Evaluation Gross Sensation Gross Sensation Left LE Impaired Sensation Description Numbness,Coldness Dermatome Impairments L3 Deep Tendon Reflex & Clonus Assessment Deep Tendon Reflex Right Patellar Deep Tendon Reflex 0 Absent Left Patellar Deep Tendon Reflex 2+ Normal PT-OP-J Posture/Palpation/Skin Start: 06/28/22 18:09 Freq: Status: Active Protocol: Document 07/02/22 13:17 LRN (Rec: 07/02/22 14:59 LRN [id number]) Posture Evaluation Position Standing Head/C-Spine Posture Forward Head Pelvis Posture Anteriorly Tilted Hip Posture (L) Externally Rotated,(R) Externally Rotated Comments Posture Comments R lower leg is smaller than L. Pt is R handed. Palpation Assessment Location Low Back Palpation Location Left QL Palpation Findings Tenderness Palpation Details No tenderness at L SIJ, spinous processes of L/S with PA glide, hip muscles. Tightness of L hip muscles. PT-OP-K Range of Motion Start: 06/28/22 18:09 Freq: Status: Active Protocol: Document 07/02/22 13:17 LRN (Rec: 07/02/22 14:59 LRN [id number]) Lumbar Spine Range of Motion Lumbar Spine Active Degrees Testing Position Standing Flexion 80 Extension 25 Rotation Left 15 Rotation Right 10 Lateral Flexion Left 12 Lateral Flexion Right 25 ROM Limitations Pain Comments Trunk Flexion is 80 deg?s with 62 deg?s hip flexion, Trunk extension is 25 deg?s with 18 deg?s hip extension. Hip Goniometric Range of Motion Hip Right Passive Hip ROM WFL Yes Testing Position Supine Internal Rotation 30 External Rotation 55 Left Passive Hip ROM WFL No Testing Position Supine Internal Rotation 35 External Rotation 50 PT-OP-L Special Tests Start: 06/28/22 18:09 Freq: Status: Active Protocol: Document 07/02/22 13:17 LRN (Rec: 07/02/22 14:59 LRN [id number]) Special Tests Lumbar Spine Special Tests Manual Traction Test Results - Comments No change in L LBP. Vertical Spine Loading Test Results - Comments No pain, trunk goes into extension Straight Leg Raise Test Results + Left (50 deg's), - Right (80 deg's) Standing Flexion Test Results - Comments No pain Prone Press Up Test Results - Comments No pain Slump Test Results - Comments No pain Hip Special Tests SAULO Test Results + Left Comments Onset of L lateral hip/lateral groin pain. PT-OP-M Strength Start: 06/28/22 18:09 Freq: Status: Active Protocol: Document 07/02/22 13:17 LRN (Rec: 07/02/22 14:59 LRN [id number]) Trunk Strength Trunk Manual Muscle Testing Flexion 5 Normal Extension 5 Normal Rotation Left 5 Normal Rotation Right 5 Normal Lateral Flexion Left 5 Normal Lateral Flexion Right 5 Normal Comments Pain felt with testing of trunk L SB and extension. Hip Strength Hip Manual Muscle Testing Right Flexion (L2) 5 Normal Extension (S1) 5 Normal Abduction 5 Normal Adduction 5 Normal External Rotation 5 Normal Internal Rotation 5 Normal Left Flexion (L2) 4- Good- Extension (S1) 5 Normal Abduction 4- Good- Adduction 2- Poor- External Rotation 5 Normal Internal Rotation 5 Normal Comments Flex - anterior lateral hip pain. PT-OP-Q Treatments Start: 06/28/22 18:09 Freq: Status: Active Protocol: Document 07/13/22 09:34 LRN (Rec: 07/13/22 10:28 LRN [id number]) Therapeutic Exercises Supine Exercises TA/alternate arm lifts Supine Exercise Name TA/alternate arm lifts. Reps/Minutes 10x TA tightening Supine Exercise Name Neutral position awareness training. Reps/Minutes 5' Supine>Sit Supine Exercise Name Transfer education/training on /off mechanical traction-log roll. Reps/Minutes 2' Comments Cuing for Core stab and proper movement Prone Exercises QUETA Prone Exercise Name QUETA Reps/Minutes 3' Comments Pain remains the same Self-Care/Home Management Treatment Activities Self-Care/Home Management Activities Recommended pt use chair to sit for breaks instead of going up 20 steps to breakroom . Pt encouraged to monitor posture, proper body mechanics , doing wall leans at work and use of CP during work day today at [facility]. PT-OP-T Assessment and Plan Start: 06/28/22 18:09 Freq: Status: Active Protocol: Document 07/13/22 09:34 LRN (Rec: 07/13/22 10:28 [facility] [id number]) Physical Therapy Assessment Goals Three Impairment Decreased function Impairment KACI score 32/100 (1-19% impaired, score 1-19). Short Term Goal (STG) Pt will be able to standing > 10-15'. 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 LTG Duration 08/13/22 Two Impairment Decreased trunk mobility Impairment Trunk Flex is 80 deg's, Trunk ext is 25 deg's, SB is 12 deg' s left, 25 deg's right; Rot is 15 deg's L, 10 deg's R. Snf Goal (LTG) Pt will be able to get in/out of car without back pain. LTG Duration 08/13/22 One Impairment Lacks appropriate self care HEP. Short Term Goal (STG) Pt will be educated in proper body mechanics for transfer and ADLs, and proper sitting and standing posture. 07/09/22: Pt educated in proper body mechanics for ADLS. STG Duration 07/13/22 partially met goal 07/09/22 Snf Goal (LTG) Pt will be independent and consistent with a self care HEP to manage his L lower extremity pain and sensation complaints of the LLE ( coldness) and feet (cold). LTG Duration 08/31/22 Progress Towards Goals Progress Comments LB/LLE pain decreased from 3/ 10 to 2/10 after traction. Assessment Summary Assessment Pt symptoms of L/S neural involvement. + response to manual Lumbar traction previously. Mechanical traction in prone over a 10' timeframe working up to traction from 40-85# on, 35-75 # off with max tension for 2 cycles. Pt had pain relief at higher tension of 80-85#. After traction pt had pain relief, but after trying stair ambulation pt pain returned from L glut to lateral upper thigh when WBing on LLE on ascend/descend steps. Pt posture is standing on RLE with trunk shift to L. Wall lean R side caused increased pain but pt able to perform when cued with a little increase discomfort. Physical Therapy Plan Frequency and Duration Frequency of Treatment 2x/Week Plan of Care Start Date 07/02/22 Plan of Care End Date 08/13/22 Next Visit Focus/Plan Next Note Type Treatment Note Next Visit Plan Assess response to mechanical lumbar traction in prone. POC: Lumbar rehab with neural involvement with ressessment in 2 weeks after pt has completed prednisone meds. Next: Gait training with cane for stairs, education for transfer and proper sitting and standing posture. Treatment focus on pt education in proper body mechanics for transfer and proper sitting and standing posture, and reducing neural L/S LE pain and normalization of soft tissue mobility and strength. Start: Manual lumbar traction, Sciatic n glides, ending MH/IFES. As pt tols, start core/pelvic stabilization and posture training.
--- NOTE | 2022-07-23 18:11 | PT.OPDS ---
Current Diagnoses Radiculopathy, lumbar region (07/13/22) Strain of muscle, fascia and tendon of lower back, initial encounter (07/13/22) Visit Care Team Role Provider Type Moisés Vargas MD Attending Provider Physician Family Provider Primary Care Provider Referring Provider Specialty: Internal Medicine Address: [address] [place] [address], [address], [place], [address] Email: [email or web address] Visit Number Visit Number 05/08 Discharge Summary PT-OP-B Current Condition Start: 06/28/22 18:09 Freq: Status: Active Protocol: Document 07/02/22 13:17 LRN (Rec: 07/02/22 14:59 LRN [id number]) Current Condition History of Current Condition Onset Date June 07, 2022 Current Complaints LBP constant, diminishes as the day goes on w/pain meds, worse at night. History of Current Condition 3.5 weeks ago pt reports sudden onset of LBP. 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 Pain began in the L low back and later it radiated into the thigh. Numbness and tingling in L LE. LLE and bilateral feet feels cold if sitting a long time. Prior Treatments and Tests Dr. Carter's, chiropractor and was told he was suffering from a facet joint strain. Treatments started 06/12/22, has had 3 visits/week and will see him today. Developmental History Developmental History Part-time, 4 days a week, 24 hr/week. 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 Has had gradual improvement. Last week and today is better and in mornings better. Pain in AM is 4/10, using pain relievers (prednisone - for 1 week and will finish tomorrow), Naproxin and extra strength tylenol and heating pad/ice/ rest. Previous onset of hernia disc ~12 yrs ago. Treatment Goals Patient/Caregiver Goals Pt goals: Carry on normally without back pain. 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 Prior Functional Status Baseline Function- Work/School Walked unlimited at work 4 days/week, 24 hr days. Able to stand > 10-15'. Current Functional Impairments (Reported) Functional Limitations- Mobility/Gait 100 yards or less. Stands only 10-15' before LBP. Functional Limitations- Work/School Off work for now. 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 PT-OP-C Subjective Start: 06/28/22 18:09 Freq: Status: Active Protocol: Document 07/13/22 09:34 LRN (Rec: 07/13/22 10:28 LRN [id number]) OP-PT Subjective Patient Comments Patient Comments Adams good in back after last treatment for a couple days considered cancelling appt today, then pain returned. Pain to start is 3+/10, after traction is 2/10. PT-OP-H Neuro Start: 06/28/22 18:09 Freq: Status: Active Protocol: Document 07/02/22 13:17 LRN (Rec: 07/02/22 14:59 LRN [id number]) Sensation Evaluation Gross Sensation Gross Sensation Left LE Impaired Sensation Description Numbness,Coldness Dermatome Impairments L3 Deep Tendon Reflex & Clonus Assessment Deep Tendon Reflex Right Patellar Deep Tendon Reflex 0 Absent Left Patellar Deep Tendon Reflex 2+ Normal PT-OP-J Posture/Palpation/Skin Start: 06/28/22 18:09 Freq: Status: Active Protocol: Document 07/02/22 13:17 LRN (Rec: 07/02/22 14:59 LRN [id number]) Posture Evaluation Position Standing Head/C-Spine Posture Forward Head Pelvis Posture Anteriorly Tilted Hip Posture (L) Externally Rotated,(R) Externally Rotated Comments Posture Comments R lower leg is smaller than L. Pt is R handed. Palpation Assessment Location Low Back Palpation Location Left QL Palpation Findings Tenderness Palpation Details No tenderness at L SIJ, spinous processes of L/S with PA glide, hip muscles. Tightness of L hip muscles. PT-OP-K Range of Motion Start: 06/28/22 18:09 Freq: Status: Active Protocol: Document 07/02/22 13:17 LRN (Rec: 07/02/22 14:59 LRN [id number]) Lumbar Spine Range of Motion Lumbar Spine Active Degrees Testing Position Standing Flexion 80 Extension 25 Rotation Left 15 Rotation Right 10 Lateral Flexion Left 12 Lateral Flexion Right 25 ROM Limitations Pain Comments Trunk Flexion is 80 deg?s with 62 deg?s hip flexion, Trunk extension is 25 deg?s with 18 deg?s hip extension. Hip Goniometric Range of Motion Hip Right Passive Hip ROM WFL Yes Testing Position Supine Internal Rotation 30 External Rotation 55 Left Passive Hip ROM WFL No Testing Position Supine Internal Rotation 35 External Rotation 50 PT-OP-L Special Tests Start: 06/28/22 18:09 Freq: Status: Active Protocol: Document 07/02/22 13:17 LRN (Rec: 07/02/22 14:59 LRN [id number]) Special Tests Lumbar Spine Special Tests Manual Traction Test Results - Comments No change in L LBP. Vertical Spine Loading Test Results - Comments No pain, trunk goes into extension Straight Leg Raise Test Results + Left (50 deg's), - Right (80 deg's) Standing Flexion Test Results - Comments No pain Prone Press Up Test Results - Comments No pain Slump Test Results - Comments No pain Hip Special Tests SAULO Test Results + Left Comments Onset of L lateral hip/lateral groin pain. PT-OP-M Strength Start: 06/28/22 18:09 Freq: Status: Active Protocol: Document 07/02/22 13:17 LRN (Rec: 07/02/22 14:59 LRN [id number]) Trunk Strength Trunk Manual Muscle Testing Flexion 5 Normal Extension 5 Normal Rotation Left 5 Normal Rotation Right 5 Normal Lateral Flexion Left 5 Normal Lateral Flexion Right 5 Normal Comments Pain felt with testing of trunk L SB and extension. Hip Strength Hip Manual Muscle Testing Right Flexion (L2) 5 Normal Extension (S1) 5 Normal Abduction 5 Normal Adduction 5 Normal External Rotation 5 Normal Internal Rotation 5 Normal Left Flexion (L2) 4- Good- Extension (S1) 5 Normal Abduction 4- Good- Adduction 2- Poor- External Rotation 5 Normal Internal Rotation 5 Normal Comments Flex - anterior lateral hip pain. PT-OP-T Assessment and Plan Start: 06/28/22 18:09 Freq: Status: Active Protocol: Document 07/23/22 18:04 LRN (Rec: 07/23/22 18:11 LRN [id number]) Physical Therapy Assessment Goals Three Impairment Decreased function Impairment KACI score 32/100 (1-19% impaired, score 1-19). Short Term Goal (STG) Pt will be able to standing > 10-15'. 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 LTG Duration 08/13/22 (07/23/22: Pt self discharged early, goal not assessed) Two Impairment Decreased trunk mobility Impairment Trunk Flex is 80 deg's, Trunk ext is 25 deg's, SB is 12 deg' s left, 25 deg's right; Rot is 15 deg's L, 10 deg's R. In Service Coordinator Goal (LTG) Pt will be able to get in/out of car without back pain. LTG Duration 08/13/22 (07/23/22: Pt self discharged early, goal not assessed) One Impairment Lacks appropriate self care HEP. Short Term Goal (STG) Pt will be educated in proper body mechanics for transfer and ADLs, and proper sitting and standing posture. 07/09/22: Pt educated in proper body mechanics for ADLS. partially met STG Duration 07/13/22 (07/23/22: Pt self discharged early, goal partially met) Group Home Goal (LTG) Pt will be independent and consistent with a self care HEP to manage his L lower extremity pain and sensation complaints of the LLE ( coldness) and feet (cold). LTG Duration 08/31/22 (07/23/22: Pt self discharged early, goal not met ) Assessment Summary Assessment Pt symptoms of L/S neural involvement. + response to manual Lumbar traction previously. Pt's last treatment consisted of mechanical traction in prone. Pt had pain relief, but after trying stair ambulation pt pain returned from L glut to lateral upper thigh when WBing on LLE on ascend/descend steps. Pt called today to report he was feels he is doing better and doesn't feel he needs to continue therapy. Pt requests discharge from physical therapy. Not able to assess progress towards goal due to pt self discharge w/o completing the rehab program. Physical Therapy Plan Discharge Physical Therapy Discharge Reasons Patient Request Discharge Comments Thank you for your referral.
== END 2022-07-25 09:11 | disposition home or self-care (01) ==
LOC: PHYS 09:30
PROVIDERS: Absent Provider Student in an Organized Health Care Education/Training Program; Family Provider Student in an Organized Health Care Education/Training Program; PCP Student in an Organized Health Care Education/Training Program; Referring Provider Student in an Organized Health Care Education/Training Program; Visit Provider Student in an Organized Health Care Education/Training Program
DX: S39.012A Strain of muscle, fascia and tendon of lower back, initial encounter (principal); M54.16 Radiculopathy, lumbar region
CPT/HCPCS: 97110; 97140; 97162; 97535

== ENCOUNTER → 2022-08-08 16:03 | Outpatient (CLI) | payer OTHER, SELFPAY ==
[2022-08-08 17:23] LABS: Hematocrit 37.1 % (41-53); Hemoglobin 12.7 g/dL (13.5-17.5); Mean Corpuscular HGB Conc 34.3 % (30-36); Mean Corpuscular Hemoglobin 31.9 PG (26-34); Mean Corpuscular Volume 92.9 fL (80-100); Platelet Count 203 X10^3/uL (150-400); Red Blood Cell Count 3.99 X10^6/uL (4.5-5.9); Red Cell Distribution Width 13.6 % (11.6-14.8); White Blood Cell Count 10.2 X10^3/uL (4.5-11.0)
[2022-08-08 17:52] LABS: HEMOLYSIS < 15 (0-50); Iron 127 ug/dL (49-181)
[2022-08-08 17:55] LABS: Alanine Aminotransferase 40 IU/L (<50); Albumin 4.5 g/dL (3.5-5.0); Albumin Globulin Ratio 1.5 (1.0-2.8); Alkaline Phosphatase 63 U/L (38-126); Aspartate Aminotransferase 30 IU/L (17-59); BUN Creatinine Ratio 29.7 (6-22); Bilirubin Total 0.8 mg/dL (0.2-1.3); Blood Urea Nitrogen 30 mg/dL (9-20); Calcium 9.3 mg/dL (8.4-10.2); Carbon Dioxide 31 mmol/L (22-32); Chloride 99 mmol/L (98-107); Cholesterol 180 mg/dL (140-199); Estimated Glomerular Filt Rate > 60 mL/min (>60); Globulin 3.1 g/dL (1.7-4.1); Glucose 97 mg/dL (80-110); HDL Cholesterol 39 mg/dL (40-60); HEMOLYSIS < 15 (0-50); LDL Cholesterol Calculated 109 mg/dL (<100); Sodium 137 mmol/L (137-145); Total Protein 7.6 g/dL (6.3-8.2); Triglycerides 159 mg/dL (35-150)
[2022-08-08 18:04] LABS: Percent Iron Saturation 38 % (20-50); Total Iron Binding Capacity 330 ug/dL (261-462); Transferrin 252 mg/dL (206-381)
[2022-08-08 18:24] LABS: Prostate Specific Antigen 2.65 ng/mL (0.10-4.00); TSH w/ Reflex to FT4 3.02 uIU/mL (0.47-4.68)
[2022-08-08 18:28] LABS: Ferritin 102 ng/mL (18-464)
== END ==
PROVIDERS: Family Provider Student in an Organized Health Care Education/Training Program; PCP Internal Medicine; Referring Provider Internal Medicine; Visit Provider Internal Medicine
DX: E78.2 Mixed hyperlipidemia (principal); N40.1 Benign prostatic hyperplasia with lower urinary tract symptoms; I10 Essential (primary) hypertension; N13.8 Other obstructive and reflux uropathy
CPT/HCPCS: 36415; 80053; 80061; 82728; 83540; 83550; 84153; 84443; 85027

== ENCOUNTER → 2023-04-09 11:43 | Outpatient (CLI) | payer OTHER, SELFPAY | PROVIDERS: Family Provider Student in an Organized Health Care Education/Training Program; PCP Internal Medicine; Referring Provider Urology; Visit Provider Urology | DX: N40.1 Benign prostatic hyperplasia with lower urinary tract symptoms (principal); N13.8 Other obstructive and reflux uropathy | CPT/HCPCS: 36415; 84153 ==

== ENCOUNTER → 2023-08-26 07:52 | Outpatient (CLI) | payer OTHER, SELFPAY ==
[2023-08-26 08:34] LABS: Hematocrit 38.9 % (41-53); Hemoglobin 13.3 g/dL (13.5-17.5); Mean Corpuscular HGB Conc 34.3 % (30-36); Mean Corpuscular Hemoglobin 31.8 PG (26-34); Mean Corpuscular Volume 92.9 fL (80-100); Platelet Count 193 X10^3/uL (150-400); Red Blood Cell Count 4.19 X10^6/uL (4.5-5.9); Red Cell Distribution Width 13.2 % (11.6-14.8); White Blood Cell Count 7.7 X10^3/uL (4.5-11.0)
[2023-08-26 09:23] LABS: Alanine Aminotransferase 42 IU/L (<50); Albumin 4.4 g/dL (3.5-5.0); Albumin Globulin Ratio 1.4 (1.0-2.8); Alkaline Phosphatase 70 U/L (38-126); Aspartate Aminotransferase 33 IU/L (17-59); BUN Creatinine Ratio 31.3 (6-22); Bilirubin Total 0.7 mg/dL (0.2-1.3); Blood Urea Nitrogen 31 mg/dL (9-20); Calcium 9.7 mg/dL (8.4-10.2); Carbon Dioxide 30 mmol/L (22-32); Chloride 104 mmol/L (98-107); Cholesterol 179 mg/dL (140-199); Estimated Glomerular Filt Rate > 60 mL/min (>60); Globulin 3.1 g/dL (1.7-4.1); Glucose 111 mg/dL (80-110); HDL Cholesterol 39 mg/dL (40-60); HEMOLYSIS < 15 (0-50); LDL Cholesterol Calculated 103 mg/dL (<100); Potassium 4.8 mmol/L (3.4-5.1); Sodium 141 mmol/L (137-145); Total Protein 7.5 g/dL (6.3-8.2); Triglycerides 187 mg/dL (35-150)
[2023-08-26 17:12] LABS: TSH w/ Reflex to FT4 2.85 uIU/mL (0.47-4.68)
== END ==
PROVIDERS: Family Provider Student in an Organized Health Care Education/Training Program; PCP Internal Medicine; Referring Provider Internal Medicine; Visit Provider Internal Medicine
DX: E78.2 Mixed hyperlipidemia (principal); N52.9 Male erectile dysfunction, unspecified; D64.9 Anemia, unspecified
CPT/HCPCS: 36415; 80053; 80061; 84443; 85027

== ENCOUNTER → 2024-08-24 09:43 | Outpatient (CLI) | payer OTHER, SELFPAY ==
[2024-08-24 10:27] LABS: Hemoglobin A1C% w Est Avg Glu 5.7 % (4.0-6.0)
[2024-08-24 10:51] LABS: Aspartate Aminotransferase 44 IU/L (17-59); BUN Creatinine Ratio 28.9 (6-22); Blood Urea Nitrogen 28 mg/dL (9-20); Carbon Dioxide 29 mmol/L (22-32); Chloride 99 mmol/L (98-107); Cholesterol 175 mg/dL (140-199); Estimated Glomerular Filt Rate > 60 mL/min (>60); Glucose 92 mg/dL (70-99); HDL Cholesterol 37 mg/dL (40-60); HEMOLYSIS < 15 (0-50); LDL Cholesterol Calculated 84 mg/dL (<100); Potassium 4.7 mmol/L (3.4-5.1); Sodium 137 mmol/L (137-145); Triglycerides 270 mg/dL (35-150)
[2024-08-24 11:21] LABS: Prostate Specific Antigen 2.41 ng/mL (0.10-4.00)
== END ==
PROVIDERS: PCP Internal Medicine; Referring Provider Internal Medicine; Visit Provider Internal Medicine
DX: R73.01 Impaired fasting glucose (principal); I10 Essential (primary) hypertension; N40.1 Benign prostatic hyperplasia with lower urinary tract symptoms; N13.8 Other obstructive and reflux uropathy
CPT/HCPCS: 36415; 80048; 80061; 83036; 84153; 84450

== ENCOUNTER → 2024-11-24 14:36 | Outpatient (CLI) | payer OTHER, SELFPAY ==
--- NOTE | 2024-11-24 14:37 | DI.RAD.S_ITS ---
PROCEDURE: XR HIP W PEL IF DONE RT 2V INDICATIONS: lateral hip pain x 6 weeks, no injury TECHNIQUE: AP pelvis with lateral view(s) of the 1 view of the right hip(s). COMPARISON: None. FINDINGS: Bones: No fractures or dislocations. Pelvic ring appears intact. No suspicious bony lesions. Mild bilateral degenerative changes of the hip. Soft tissues: The visualized bowel gas pattern is normal. No suspicious soft tissue calcifications. IMPRESSION: Minimal degenerative change. Dictated by: Riley Hummel M.D. on 11/24/2024 at 15:43 Approved by: Riley Hummel M.D. on 11/24/2024 at 15:43
== END ==
PROVIDERS: PCP Internal Medicine; Referring Provider Physician Assistant; Visit Provider Physician Assistant
DX: M25.559 Pain in unspecified hip (principal)
CPT/HCPCS: 73502